=== PATIENT | male | born 1965 | race Caucasian/White ===

== ENCOUNTER → 2018-06-19 10:31 | Outpatient (CLI) | payer OTHER, SELFPAY ==
[2018-06-19 11:29] LABS: Cholesterol 196 mg/dL (200); Glucose 96 mg/dL (74-106); High Density Lipoprotein 66 mg/dL; Triglycerides 144 mg/dL; Very Low Density Lipoprotein 29 mg/dL (5-40)
== END ==
PROVIDERS: Family Provider Internal Medicine; PCP Internal Medicine; Referring Provider Internal Medicine; Visit Provider Internal Medicine
DX: Z00.00 Encounter for general adult medical examination without abnormal findings (principal); Z13.1 Encounter for screening for diabetes mellitus; Z13.220 Encounter for screening for lipoid disorders
CPT/HCPCS: 36415; 80061; 82947

== ENCOUNTER → 2019-07-01 | Outpatient (CLI) | payer OTHER, SELFPAY | END | disposition home or self-care (01) | LOC: LAB 10:22 | PROVIDERS: Family Provider Internal Medicine; PCP Internal Medicine; Referring Provider Internal Medicine; Visit Provider Internal Medicine | DX: Z00.00 Encounter for general adult medical examination without abnormal findings (principal); Z13.1 Encounter for screening for diabetes mellitus; Z13.220 Encounter for screening for lipoid disorders; Z79.899 Other long term (current) drug therapy | CPT/HCPCS: 36415 ==

== ENCOUNTER → 2020-09-15 14:02 | Outpatient (CLI) | payer OTHER, SELFPAY | PROVIDERS: PCP Internal Medicine; Referring Provider Internal Medicine; Visit Provider Internal Medicine | DX: U07.1 COVID-19 (principal) | CPT/HCPCS: 87635; U0003 ==

== ENCOUNTER 2021-05-04 12:13 | Emergency (ER) | payer OTHER, SELFPAY ==
[2021-05-04 08:15] VITALS: BMI 26.4
[2021-05-04 12:14] VITALS: BP 145/92; PULSE 96; RESP 18; TEMP 36.6; O2SAT 90; BMI 24.9
[2021-05-04 12:24] VITALS: PULSE 72; RESP 18; O2SAT 95
--- NOTE | 2021-05-04 12:59 | CT_ITS ---
STUDY: CT ABDOMEN AND PELVIS WITHOUT CONTRAST REASON FOR EXAM: Male, 55 years old. Right-sided abdominal pain. RADIATION DOSAGE (If Supplied By Facility): CTDIvol = ( 13.61 ) mGy, DLP = ( 697.72 ) mGycm TECHNIQUE: Transaxial images were obtained from the dome of the diaphragm to the symphysis pubis without oral contrast, and without intravenous contrast. Sagittal and coronal images were reconstructed. Individualized dose optimization techniques were used for this CT. COMPARISON: None. FINDINGS: The visualized lung bases are unremarkable. Coronary artery calcification. There is decreased attenuation of the liver consistent with steatosis. Normal gallbladder and extrahepatic biliary system. Normal spleen. Normal pancreas. Normal bilateral adrenal glands. Normal right kidney. Normal left kidney. There is a small hiatal hernia. Surgical clips are seen in the region of the stomach. Normal small intestine. Normal colon. The appendix is visualized and appears normal. There is atherosclerotic calcification of the abdominal aorta and its major visceral branches, without a demonstrated aneurysm. Normal inferior vena cava. Normal retroperitoneum. Normal urinary bladder. Bilateral inguinal hernias containing fat more prominent on the right side. There are diffuse degenerative changes of the visualized lumbar spine. CT/Abdomen/Pelvis without Cont IMPRESSION: Fatty infiltration of the liver. Small hiatal hernia. Electronically Signed: Dimitri Ayala MD at 14:12 EDT , Service support ,
[2021-05-04 13:06] LABS: Absolute Lymphocyte Count 2.47 X10^3/uL (0.83-4.51); Absolute Neutrophil Count 5.1 X10^3/uL (2.0-7.7); Basophil# 0.04 X10^3/uL; Basophil% 0.5 % (0-1); Eosinophil# 0.06 X10^3/uL; Eosinophils% 0.7 % (0-5); Hematocrit 45.6 % (40-54); Hemoglobin 15.8 g/dL (13.0-16.5); Lymphocyte # 2.47 X10^3/ul (0.83-4.51); Lymphocyte % 29.1 % (19-41); Mean Corp Hgb Conc 34.6 g/dL (32-36); Mean Corpuscular Hgb 34.1 pg (27.0-32.0); Mean Corpuscular Volume 98.5 fL (80-94); Mean Platelet Vol. 11.7 fl (6.2-12.0); Monocyte# 0.84 X10^3/uL; Monocyte% 9.9 % (0-10); NRBC Flagged by Analyzer 0 % (0-5); Neutrophil # 5.08 X10^3/uL (2.7-7.7); Neutrophil % 59.7 % (47-70); Platelet Count 219 K/mm3 (150-450); RBC Distribution Width CV 12.1 % (11.6-14.6); Red Blood Count 4.63 M/mm3 (4.6-6.2); White Blood Count 8.5 K/mm3 (4.4-11.0)
--- NOTE | 2021-05-04 13:06 | ED.VIS.GI ---
HPI HPI - GI History of Present Illness Chief Complaint: Abd Pain Informant: patient Abdominal Pain/Flank Pain Onset: Today Context: Gradual Onset Timing: Continuous Quality: Dull and Sharp Location: RLQ and Right Flank Worsened by: - (Sitting) Relieved by: - (Standing) Nausea/Vomiting/Emesis GI Symptom: Negative for Nausea and Vomiting Diarrhea/Melena/Hematochezia GI Symptom: Negative for Diarrhea, Melena and Hematochezia Associated Symptoms Associated Symptoms: Positive for Frequency; Negative for Dysuria and Hematuria Narrative Narrative: Patient presents with abdominal pain that began today. Patient states he saw his primary care physician today for check of a right inguinal hernia. Patient states he was feeling fine after that. Patient states that when he went home his pain became worse. Patient states that it is sharp and dull. Patient states pain is worse over the right lower quadrant but radiates into his back. Patient states it is better with standing and worse with sitting. Patient denies any nausea or vomiting. Patient denies any diarrhea, melena, or hematochezia. Patient admits to some urinary frequency but denies any dysuria or hematuria. Patient admits to an episode of subjective chills at home earlier today. [facility] Medical History Depressive disorder, not elsewhere classified Essential hypertension GERD (gastroesophageal reflux disease) Inguinal hernia Home Medications amlodipine 10 mg tablet 10 mg PO DAILY 05/21/20 [History Last Taken Unknown] blackelderberry 1 tab PO DAILY 05/21/20 [History Last Taken Unknown] cholecalciferol (vitamin D3) 25 mcg (1,000 unit) capsule 25 mcg PO DAILY 05/21/20 [History Last Taken Unknown] clonidine HCl 0.1 mg tablet 0.1 mg PO QHS 05/21/20 [History Last Taken Unknown] glucosamine sulfate 1,000 mg capsule 1,000 mg PO DAILY 05/21/20 [History Last Taken Unknown] lisinopril 5 mg tablet 5 mg PO DAILY 05/21/20 [History Last Taken Unknown] paroxetine HCl 20 mg tablet 10 mg PO DAILY tab 05/21/20 [History Last Taken Unknown] Allergy/AdvReac Type Severity Reaction Status Date / Time amitriptyline [From Elavil] Allergy , Verified 05/04/21 12:16 atorvastatin [From Lipitor] Allergy , Verified 05/04/21 12:16 bee venom protein (honey bee) Allergy . Verified 05/04/21 12:16 ezetimibe [From Zetia] Allergy . Verified 05/04/21 12:16 fluoxetine [From Prozac] Allergy . Verified 05/04/21 12:16 hydrochlorothiazide Allergy . Verified 05/04/21 12:16 Family History (Updated 05/26/20 @ 08:54 by Nevin Hernandez) Mother Hypertension Diabetes CVA (cerebral vascular accident) Father Colon cancer Cancer Surgical History Herniated vertebral disc Social History Smoking Status: Never smoker substance use type: does not use ROS ROS ED Constitutional Constitutional ED: Reports chills and subjective; Denies fever(s) Eyes Eyes: Denies blurry vision or change in vision ENT ENT ED: Denies rhinorrhea or sore throat Cardiovascular Cardiovascular: Denies chest pain or palpitations Respiratory/Chest Respiratory/Chest: Reports cough and dyspnea Gastrointestinal Gastrointestinal: Reports abdominal pain; Denies nausea or vomiting Genitourinary Genitourinary ED: Reports urinary frequency; Denies dysuria or hematuria Musculoskeletal Musculoskeletal: Reports back pain; Denies neck pain Integumentary Denies abscess or rash Neurologic Neurologic: Denies headache(s) or weakness Allergic/Immunologic Allergic/Immunologic ED: Denies mouth swelling or urticaria EXAM Physical Exam Const Vital Signs: 05/04/21 12:14 05/04/21 12:24 05/04/21 13:13 Temperature 98 F Temperature Source Temporal Pulse Rate 96 72 68 Respiratory Rate 18 18 15 Blood Pressure 145/92 H 128/80 H Blood Pressure Mean 109 96 Pulse Ox 90 95 98 Oxygen Delivery Method Room Air Room Air Room Air 05/04/21 14:23 Temperature Temperature Source Pulse Rate 71 Respiratory Rate 16 Blood Pressure 138/83 H Blood Pressure Mean 101 Pulse Ox 98 Oxygen Delivery Method Room Air Positive well nourished and well developed General Appearance ED: well developed HEENT Reports moist mucous membranes Neck supple and no JVD Resp normal respiratory effort and clear to auscultation bilaterally Cardio regular rate, regular rhythm and no murmurs GI normal to inspection, nondistended, normoactive bowel sounds Palpation: soft and tender RLQ and RUQ; Negative for guarding or rebound tenderness present Extremity normal to inspection General Extremety ED: Negative for edema or tenderness General Extremity: Negative for edema Neuro oriented x3, CN's II-XII intact bilaterally and no sensory deficits noted Sensorium / Orientation: alert Motor Exam: strength 5/5 throughout Psych mental status grossly normal Skin no rashes or lesions noted MDM MDM MDM Narrative Medical decision making narrative: Patient was given IV fluids and morphine here. CBC was within normal limits. Comprehensive metabolic profile was normal. Lipase was normal. Urinalysis was normal. CT scan of the abdomen and pelvis was obtained. There are bilateral inguinal hernias containing fat, worse on the right. There is no ureteral calculus or hydronephrosis noted. There is no evidence of appendicitis. There is no other acute intra-abdominal process. This was interpreted by the radiologist and reviewed by myself. Lab Data Attestation: I reviewed the patient's lab results. Labs: Laboratory Results - last 24 hr 05/04/21 05/04/21 05/04/21 12:29 12:29 13:35 WBC 8.5 RBC 4.63 Hgb 15.8 Hct 45.6 MCV 98.5 H MCH 34.1 H MCHC 34.6 RDW Std Deviation 44.0 H RDW Coeff of Samantha 12.1 Plt Count 219 MPV 11.7 Immature Gran % (Auto) 0.100 Neut % (Auto) 59.7 Lymph % (Auto) 29.1 Grainger % (Auto) 9.9 Eos % (Auto) 0.7 Baso % (Auto) 0.5 Absolute Neuts (auto) 5.1 Absolute Lymphs (auto) 2.47 Nucleated RBC % 0 Sodium 133 L Potassium 4.1 Chloride 98 Carbon Dioxide 23.0 Anion Gap 12 BUN 11 Creatinine 0.90 Estim Creat Clear Calc 114.13 Est GFR (MDRD) Af Amer 111 Est GFR (MDRD) Non-Af 92 BUN/Creatinine Ratio 12.2 Glucose 103 Calcium 9.4 Total Bilirubin 0.50 AST 32 ALT 56 Alkaline Phosphatase 63 Total Protein 8.1 Albumin 4.2 Globulin 3.9 Albumin/Globulin Ratio 1.1 Lipase 153 Urine Color Straw Urine Clarity Clear Urine pH 7.0 Ur Specific [place] 1.010 Urine Protein Negative Urine Glucose (UA) Normal Urine Ketones Negative Urine Occult Blood Negative Urine Nitrite Negative Urine Bilirubin Negative Urine Urobilinogen Normal Ur Leukocyte Esterase Negative Urine RBC 0 SEEN Urine WBC 0-5 SEEN Ur Squamous Epith Cells 0-5 SEEN Urine Bacteria 0 SEEN Urine Mucus 0 SEEN Radiography Diagnostic Testing: Radiology Impression Abdomen/Pelvis CT 05/04/21 12:59 IMPRESSION: Fatty infiltration of the liver. Small hiatal hernia. Electronically Signed: Dimitri Ayala MD at 14:12 EDT , Service support , Discharge Plan Triage Chief Complaint: Abd Pain ED Provider: Moe Fernandes Dx/Rx/DC Orders Clinical Impression: Right inguinal hernia Instructions: ED Hernia (Adult) Prescriptions: No Action clonidine HCl 0.1 mg tablet 0.1 mg PO QHS RF: 0 paroxetine HCl 20 mg tablet 10 mg PO DAILY RF: 0 lisinopril 5 mg tablet 5 mg PO DAILY RF: 0 amlodipine 10 mg tablet 10 mg PO DAILY RF: 0 cholecalciferol (vitamin D3) 25 mcg (1,000 unit) capsule 25 mcg PO DAILY RF: 0 blackelderberry capsule 1 tab PO DAILY RF: 0 glucosamine sulfate 1,000 mg capsule 1,000 mg PO DAILY RF: 0 Primary Care Provider: Fabiana Casey Referrals: Fabiana Casey MD [Primary Care Provider] - 3-5 Days Bk Fry MD [STAFF PHYSICIAN] - 5-7 Days Disposition Disposition: Home, Self Care
[2021-05-04] MEDS: 0.9% Normal Saline 1,000 ML 1000 ML IV (13:12)
[2021-05-04] MEDS: Morphine 4 MG/ML Syringe IV (13:12)
[2021-05-04 13:13] VITALS: BP 128/80; PULSE 68; RESP 15; O2SAT 98
[2021-05-04 13:19] LABS: ALB/GLOB Ratio 1.1 RATIO (0.9-2.4); AST(SGOT) 32 U/L (15-37); Alanine Aminotransfer ALT/SGPT 56 U/L (16-61); Albumin, Serum 4.2 g/dL (3.2-5.0); Alkaline Phosphatase 63 U/L (45-117); Anion Gap 12 (5-15); BUN 11 mg/dL (7-18); BUN/Creat Ratio 12.2 RATIO (10-20); Calcium,Total 9.4 mg/dL (8.5-10.1); Chloride 98 mmol/L (98-107); EST Glomerular Filtration Rate 92 mL/min (>60); Est Glom Filt Rate - Afr Amer 111 mL/min (>60); Estimated Creatinine Clearance 114.13 ml/min; Globulin 3.9 g/dL (2.2-4.2); Glucose 103 mg/dL (74-106); Lipase 153 U/L (73-393); Potassium 4.1 mmol/L (3.5-5.1); Protein, Total 8.1 g/dL (6.4-8.2); Sodium Level 133 mmol/L (136-145)
[2021-05-04 13:43] LABS: Bacteria 0 SEEN /hpf (None Seen); Mucous, Urine 0 SEEN /hpf (<or=2+); Red Blood Cells-Urine 0 SEEN /hpf (0-5)
[2021-05-04 13:44] LABS: Color, Urine Straw (Yellow); Glucose, Dipstick Normal (Normal); Ketone-Dipstick Negative (Negative); Leukocyte Esterase-Dipstick Negative /ul (Negative); Nitrite-Dipstick Negative (Negative); Occult Blood-Urine Negative /ul (Negative); Protein-Dipstick Negative (Negative); Urine Bilirubin Dipstick Negative (Negative); Urine Clarity Clear (Clear); Urine Urobilinogen Normal (Normal)
[2021-05-04 13:50] LABS: Squamous Epithelial Cells - UA 0-5 SEEN /hpf (0-5); White Blood Cells 0-5 SEEN /hpf (0-5)
[2021-05-04 14:23] VITALS: BP 138/83; PULSE 71; RESP 16; O2SAT 98
[2021-05-04 15:08] VITALS: BP 129/74; PULSE 90; RESP 15; O2SAT 98
== END 2021-05-04 15:10 | disposition home or self-care (01) ==
PROVIDERS: Emergency Provider Emergency Medicine; PCP Internal Medicine
DX: K40.90 Unilateral inguinal hernia, without obstruction or gangrene, not specified as recurrent (principal); I10 Essential (primary) hypertension; K21.9 Gastro-esophageal reflux disease without esophagitis; Z79.899 Other long term (current) drug therapy
CPT/HCPCS: 74176; 80053; 81001; 83690; 85025; 96361; 96374; 99284; J7030; A4216

== ENCOUNTER → 2021-05-05 15:05 | Outpatient (CLI) | payer OTHER, SELFPAY ==
[2021-05-05 15:42] LABS: PSA,Total- Diagnostic 0.69 ng/mL (0.0-4.0)
== END ==
PROVIDERS: PCP Internal Medicine; Referring Provider Surgery; Visit Provider Surgery
DX: R33.9 Retention of urine, unspecified (principal); Z80.42 Family history of malignant neoplasm of prostate
CPT/HCPCS: 36415; 84153

== ENCOUNTER 2021-05-17 05:57 | Day surgery (SDC) | payer OTHER, SELFPAY ==
--- NOTE | 2021-05-11 14:00 | EKG12_ITS ---
Test Reason : PREOP Blood Pressure : / mmHG Vent. Rate : 088 BPM Atrial Rate : 088 BPM P-R Int : 166 ms QRS Dur : 080 ms QT Int : 342 ms P-R-T Axes : 059 039 064 degrees QTc Int : 413 ms Normal sinus rhythm Normal ECG Confirmed by EVELINA YOUNG, GAURANG ([id number]), senior technical editor LUCY JUNIOR ([id number]) on 05/12/2021 8:45:05 AM Referred By: Bk Fry Confirmed By:GAURANG HOTY MD
[2021-05-17] VITALS (8 sets, daily range): BP systolic 103–119; BP diastolic 65–82; PULSE 61–79; RESP 16–18; TEMP 36.2–36.7; O2SAT 92–96; BMI 26.4
[2021-05-17] MEDS: Lactated Ringers 1,000 ML 100 ML IV ×2 (06:32→09:39)
--- NOTE | 2021-05-17 06:32 | PCM.HP.BLA ---
History and Physical Date of Admission: 05/17/21 Intake Visit Reasons: right inguinal hernia Chief Complaint: right inguinal hernia [employer] Required: No Is patient in pain?: Yes (right groin ) Pain scale (1-10): 5 Allergies amitriptyline [From Elavil] Allergy (Verified 05/05/21 14:20) , atorvastatin [From Lipitor] Allergy (Verified 05/05/21 14:20) , bee venom protein (honey bee) Allergy (Verified 05/05/21 14:20) . ezetimibe [From Zetia] Allergy (Verified 05/05/21 14:20) . fluoxetine [From Prozac] Allergy (Verified 05/05/21 14:20) . hydrochlorothiazide Allergy (Verified 05/05/21 14:20) . Medications amlodipine 10 mg tablet 10 mg PO DAILY 05/21/20 [History Confirmed 05/05/21] blackelderberry 1 tab PO DAILY 05/21/20 [History Confirmed 05/05/21] cholecalciferol (vitamin D3) 25 mcg (1,000 unit) capsule 25 mcg PO DAILY 05/21/20 [History Confirmed 05/05/21] clonidine HCl 0.1 mg tablet 0.1 mg PO QHS 05/21/20 [History Confirmed 05/05/21] glucosamine sulfate 1,000 mg capsule 1,000 mg PO DAILY 05/21/20 [History Confirmed 05/05/21] lisinopril 5 mg tablet 5 mg PO DAILY 05/21/20 [History Confirmed 05/05/21] paroxetine HCl 20 mg tablet 10 mg PO DAILY tab 05/21/20 [History Confirmed 05/05/21] tamsulosin 0.4 mg capsule 0.4 mg PO QHS #30 cap 05/05/21 [Rx Confirmed 05/05/21] [facility] Medical History (Updated 05/05/21 @ 14:[address] Bk Fry MD) Back pain Depressive disorder, not elsewhere classified Essential hypertension Family history of prostate cancer GERD (gastroesophageal reflux disease) Inguinal hernia Urinary retention Surgical History (Updated 05/05/21 @ 14:19 by Rosa Ortega) Herniated vertebral disc History of colonoscopy (~03/2014) History of esophagogastroduodenoscopy (EGD) History of Lara fundoplication Family History (Updated 05/05/21 @ 14:19 by Rosa Ortega) Mother Hypertension Diabetes CVA (cerebral vascular accident) Father Cancer prostate Social History Smoking Status: Never smoker substance use type: does not use HPI: INDER RAMAN, is a 55 M who presents to the office today for surgical consultation regarding right lower quadrant abdominal pain groin pain. The patient was seen at the [facility] emergency room yesterday May 04, 2021. He felt that the pain was worsening. Laboratory was obtained was unremarkable. A CT scan was obtained suggesting bilateral fat-containing groin hernias worse on the right than on the left. No other acute findings. There was no bowel involvement. The patient states that he is more comfortable than he was yesterday. Apparently yesterday was quite uncomfortable. Over the past couple days he literally can feel tissue squishing in and out of the right hernia. He has had no nausea or vomiting. He has had increased urinary retention. Voiding smaller amounts more frequently. We could not find results of a PSA level for several years. ROS General General: Yes fatigue; No weight change, appetite, colon cancer, breast cancer or weakness HEENT HEENT: No difficulty swallowing, eye injury, eye surgery, swollen glands or hoarseness Endo Endocrine: No thyroid disease, diabetes mellitus, thyroid cancer, Hair loss, heat intolerance or cold intolerance Musc Musculoskeletal: Yes back problems; No arthritis, rheumatoid arthritis, gout or joint pain Cardio Cardiovascular: Yes high blood pressure; No murmur, pacemaker, heart disease, atrial fibrillation, heart attack, heart stent, palpitations, shortness of breat with exertion or chest pain Psych Psychiatric: No depression, anxiety or hearing voices Resp Respiratory: No shortness of breath, Yes sleep apnea, No cough, No COPD, No asthma, No emphysema and No wheezing Gastro Gastrointestinal: Yes abdominal pain, No nausea or vomiting, Yes diarrhea, Yes constipation, No blood in stool, Yes acid reflux, No hemorrhoids, No ulcers, No gallbladder problem and No black,tarry stools Justino Hematologic: No blood thinners, No blood disorders, No bleeding, No anemia and No blood clots Neuro Neurologic: No weakness Exam Const General: cooperative, comfortable and no acute distress Orientation: alert and awake HENCO Head: normal to inspection Eyes General: appearance normal, both eyes and all related structures Resp Effort & Inspection: normal respiratory effort Auscultation: clear to auscultation bilaterally Cardio Rate: regular rate Rhythm: regular rhythm GI Palpation: soft and no hepatosplenomegaly Other: Well-healed laparoscopic incisions upper mid abdomen from previous reflux surgery Other: Testicles are descended. Obvious medial right inguinal hernia. Slightly tender but still reducible. Smaller left inguinal hernia. Reducible Musc Cervical Spine: normal cervical lordosis Skin Other: 2 traumatic wounds left hand and wrist. Healing. Neuro General: patient alert and patient awake Extrem General: no calf tenderness Psych Thought Process: normal COVID (Procedure Consent) Procedure Criteria Procedure Criteria: Yes Elective The surgeon/proceduralist and patient have discussed in detail the risk of exposure to and/or potential harm posed by the COVID-19 virus with having a surgery/procedure at this time versus the risk of delaying the surgery/procedure. It is not possible to know either the risk of delaying the surgery or procedure or chance of getting an infection with perfect accuracy, but a joint decision was made between the patient and the surgeon/proceduralist to proceed at this time with the scheduled surgery/procedure as indicated on the consent form. Assessment and Plan Assessment and Plan (1) Urinary retention: Status: Acute (2) Inguinal hernia of left side without obstruction or gangrene: Status: Acute Orders: Orders: PSA,Total- Diagnostic Today R33.9 Plan - Dr. Bk Fry MD: 55-year-old gentleman. He has bilateral inguinal hernias much more symptomatic on the right than the left. He does a very physical job. He has had increased problems with urinary retention. I propose for him a laparoscopic bilateral inguinal herniorrhaphy with mesh. I described the technique, benefit, risk of alternatives. I recommend that we obtain a PSA level preprocedure. I additionally recommend that we initiate Flomax therapy 0.4 mg nightly and adjust him to try to avoid postoperative urinary catheterization. He has had an opportunity to ask and have questions answered. We will schedule and proceed at his discretion. I appreciate the opportunity of assisting with the surgical care. Copy: Dr. Fabiana Fry M.D., F.A.C.S. Plan Details Other Medications: New: tamsulosin (Flomax) 0.4 mg PO QHS 30 caps 0RF Preoperative PSA normal at 0.69 I have re-examined the patient. There are no clinical changes since date of exam. Bk rFy M.D., F.A.C.S.
--- NOTE | 2021-05-17 06:34 | EX.PCM.DISCH ---
Discharge Instructions Procedure General Surgery Diet Discharge Diet: Light diet - advance as tolerated (if you have questions about your diet instructions, please talk to you doctor.) Activity Discharge Activity: May Not Drive (for 3-5 days or while taking narcotic pain medicine.) May shower in (days): 1 Lifting Restrictions: 10 pounds Dressing / Incision Call your doctor if your incision/area has: Continuous Slow Oozing, Sudden Increased Bleeding, Increased Pain/ Swelling, Increased Redness and Foul Smelling Discharge Call your doctor if you observe: Fever of 101 or Higher Suture Line Care: Avoid Pulling/Pushing and Avoid Pinching/Bending Additional Dressing/Incision Instructions:: Change or remove dressing in 4 days. Leave steri-strips in place for 1 week. Follow Up Care Please Follow Up With: Bk Fry MD When: Call [phone] to make an appointment to be seen in about 10 days. Test Results: Test results from this visit will be discussed in further detail at your follow-up appointment, if applicable. Discharge Plan Admission Attending Provider: Bk Fry Primary Care Provider: Fabiana Casey Discharge Orders/Prescriptions Prescriptions: No Action clonidine HCl 0.1 mg tablet 0.1 mg PO QHS RF: 0 paroxetine HCl 20 mg tablet 10 mg PO DAILY RF: 0 lisinopril 5 mg tablet 5 mg PO DAILY RF: 0 amlodipine 10 mg tablet 10 mg PO DAILY RF: 0 cholecalciferol (vitamin D3) 25 mcg (1,000 unit) capsule 25 mcg PO DAILY RF: 0 blackelderberry capsule 1 tab PO DAILY RF: 0 glucosamine sulfate 1,000 mg capsule 1,000 mg PO DAILY RF: 0 tamsulosin [Flomax] 0.4 mg capsule 0.4 mg PO QHS Qty: 30 RF: 0
[2021-05-17] MEDS: Cefazolin 2 GM in 0.9% Normal Saline 100 ML IV (07:19)
--- NOTE | 2021-05-17 07:30 | HERN_PTH ---
PATIENT: INDER RAMAN LOC: [facility] U#:[id number] AGE/SX: 55/M ROOM: RE05/17/[address]: Dr. Bk Fry MD : 1965 BED: DIS: 05/17/2021 SPEC #: [id number] RECD: 05/17/21 10:19 STATUS: ALVARO REInderjit #: [id number] TRU: 05/17/21 07:[address]: Bk Fry DEPT: SURGICAL PATHOLOGY RECD BY: Brian Israel ENTERED: 05/17/21 11:12 SP TYPE: Hernia OTHR DR: Dr. Fabiana Casey MD Tissues: HERNIA Procedures: Surgery Specimen Level II HEADER OPERATION: Laparoscopic inguinal hernia repair PRE-OP DIAGNOSIS: Urinary retention, inguinal hernia of left side TISSUE SUBMITTED: Umbilical hernia sac and contents MICROSCOPIC DIAGNOSIS Umbilical hernia sac and contents: Pieces of fibroadipose and fibroconnective tissue, clinically umbilical hernia sac and contents. SJ:mau 05/18/2021 MICROSCOPIC DESCRIPTION Slides are reviewed. GROSS DESCRIPTION Received in fixative is one container labeled with the patient's name and designated umbilical hernia sac and contents. The specimen consists of two pieces of yellow adipose tissue measuring in aggregate 2.5 x 1.5 x 0.5 cm. No mass lesion is identified. Both pieces are bisected and submitted entirely in one cassette. / SAYRA:mau 05/17/21 TC:5 CPT: 84536
[2021-05-17] MEDS: Bupivacaine Mpf 0.5% 30 ML VIAL (07:39)
--- NOTE | 2021-05-17 08:47 | PCM.OPRPT ---
Problems Associated Problem List Diagnoses (1) Right inguinal hernia: (2) Inguinal hernia of left side without obstruction or gangrene: (3) Umbilical hernia without obstruction or gangrene: Report of Operation Date of Procedure: 05/17/21 Pre-Operative Diagnosis: Symptomatic direct right inguinal hernia, direct left inguinal hernia Post-Operative Diagnosis: Symptomatic direct right inguinal hernia, direct left inguinal hernia, umbilical hernia Surgery/Procedure Performed:: Laparoscopic bilateral inguinal herniorrhaphy with Bard 3D max mesh. Umbilical herniorrhaphy with 6.4 cm Ventralex Left Bard 3D Max Lot [id number]. Reference [id number]. Expiry date 09/14/2025 Right Bard 3D max mesh Lot number [id number], reference #[id number], expiry date 09/14/[address] hernia patch lot number [id number], reference #[id number], expiry date 01/13/2023 Secure strap RAMPRS, expiry date August 2022 Description of Surgical Findings:: Timeout and informed consent was obtained. 55-year-old gent was taken to the operating placement table underwent general endotracheal intubation esthesia. Ancef 2 g were given intravenously. The abdomen sterilely prepped and draped. 0.5% Marcaine was used as a local anesthetic. Throughout the procedure a total of 30 cc was used. A curvilinear incision was made the inferior portion of the like is sharp and blunt dissection was used to identify an umbilical hernia. This was circumferentially dissected free. Hernia sac and contents were dissected free with electrocautery and submitted to specimen. Holding sutures of 0 Vicryl placed. 10 mm trocar inserted. The abdomen was insufflated with CO2 to a pressure of 10 mmHg pressure. No evidence of any trocar injuries. Under laparoscopic visualization 5 on her ports were placed on the right and left lower quadrants. Under laparoscopic visualization ilioinguinal nerve blocks were performed bilaterally using the 0.5% Marcaine. The peritoneum on the right demonstrated a very deep direct defect with indented peritoneum. The peritoneum superior lateral to the internal ring was incised carried medially the peritoneum was dissected free. Was densely adherent to the cord. Upon dissecting it in order to free it had to transect the vas deferens on the right to allow for complete freeing of the peritoneum due to the dense adhesions. I secured the ends with Hem-o-prem clips. This allowed them for full mobilization of the peritoneum. I then approached the left side in similar fashion the peritoneum was incised this side had a much smaller direct defect and was much easier to dissect free. I now had both direct spaces indirect spaces and femoral areas visualized. I placed a large Bard 3D max mesh on the right and secured it laterally with secure strap. I plus a large 3D max mesh on the left and similarly secured that laterally superiorly and then medially. The left mesh overlapped the right mesh at the symphysis pubis and I secured it to each other with a secure strap. Excellent positioning and treatment was achieved. The peritoneum was then approximated to itself using secure strap and Hem-o-prem clips. Complete obliteration of the mesh was achieved. The abdomen was allowed to deflate of the CO2. This was done through an antiviral valve. At the umbilicus a 6.[address] mesh was wetted and then placed and secured there with interrupted 0 Nurolon. The fascia was then approximated with the same securing the mesh at the umbilical site. Good approximation and closure was achieved. The skin was then approximated with interrupted 4-0 Monocryl subdermal stitches. Steri-Strips Telfa OpSite dressings applied. Sponge and instrument and needle counts were reported the surgeon be correct. Blood loss was minimal. Specimens umbilical hernia sac and contents. Drains none. Blood loss minimal. The patient was taken the recovery room in satisfactory addition without apparent complication Bk Fry M.D., F.A.C.S. Surgeon: Bk Fry Type of Anesthesia: General and Local Anesthesiologist: Antoine Osborne
[2021-05-17] MEDS: HYDROcodone Bitartrate/Apap 5/325 Tablet PO (10:29)
--- NOTE | 2021-05-17 13:23 | SUR.PHASEII ---
1315 Patient ambulated to bathroom , able to void small amount per patient. Patient feels it is right there, but unable to empty. DD 1325 patient bladder scanned , <[address] Fry called , orders received. DD
== END 2021-05-17 14:10 | disposition home or self-care (01) ==
LOC: SDC 05:58 → AC 05:58
PROVIDERS: PCP Internal Medicine; Referring Provider Surgery; Visit Provider Surgery
PROC: (CPT 49650; principal; 2021-05-17 07:10)
DX: K40.20 Bilateral inguinal hernia, without obstruction or gangrene, not specified as recurrent (principal); K42.9 Umbilical hernia without obstruction or gangrene; F32.9 Major depressive disorder, single episode, unspecified; I10 Essential (primary) hypertension; K21.9 Gastro-esophageal reflux disease without esophagitis; R33.9 Retention of urine, unspecified; G47.33 Obstructive sleep apnea (adult) (pediatric); F17.200 Nicotine dependence, unspecified, uncomplicated; Z79.899 Other long term (current) drug therapy
CPT/HCPCS: 49585; 49650; 88302; 93005; C1781; J7120; J2405

== ENCOUNTER → 2021-06-24 10:32 | Outpatient (CLI) | payer OTHER, SELFPAY ==
[2021-06-24 12:33] LABS: Cholesterol 201 mg/dL (200); High Density Lipoprotein 84 mg/dL; Triglycerides 60 mg/dL; Very Low Density Lipoprotein 12 mg/dL (5-40)
[2021-06-24 12:34] LABS: Vitamin D,25 Hydroxy 26.8 ng/mL
[2021-06-24 12:54] LABS: Hemoglobin A1c 5.4 % (3.8-5.6)
== END ==
PROVIDERS: PCP Internal Medicine; Referring Provider Internal Medicine; Visit Provider Internal Medicine
DX: E55.9 Vitamin D deficiency, unspecified (principal); I10 Essential (primary) hypertension; K21.9 Gastro-esophageal reflux disease without esophagitis
CPT/HCPCS: 36415; 80061; 82306; 83036

== ENCOUNTER → 2023-01-04 | Outpatient (CLI) | payer OTHER, SELFPAY | END | disposition home or self-care (01) | LOC: LABSPEC 15:49 | PROVIDERS: PCP Internal Medicine; Visit Provider Physician Assistant | DX: L03.114 Cellulitis of left upper limb (principal) | CPT/HCPCS: 87070; 87077; 87186; 87205 ==